=== PATIENT | female | born 1950 | race Caucasian/White ===

== ENCOUNTER 2019-02-21 07:47 | Emergency (ER) | payer MEDICARE, OTHER ==
[2019-02-21 08:06] VITALS: BP 149/68
--- NOTE | 2019-02-21 08:32 | UC ---
Skin Complaint HPI - HPI Summary HPI Summary: patient was working in the garden a few days ago. ended up with a itchy red bumpy rash on her left arm and ankle has been appliying cortisone cream with little relief - History of Current Complaint Chief Complaint: UCSkin Time Seen by Provider: 02/21/19 08:15 Stated Complaint: RASH Hx Obtained From: Patient Hx Last Menstrual Period: 2008 ?: No Onset/Duration: Sudden Onset, Lasting Days Skin Exposure Onset/Duration: Days Ago Onset Severity: Mild Current Severity: None Pain Intensity: 0 Location: Discrete Character: Pruritus, Redness, Raised Aggravating Factor(s): Humidity, Touch Alleviating Factor(s): Nothing Related History: Possible Reaction to: Environmental Exposure - Allergy/Home Medications Allergies/Adverse Reactions: Allergies Allergy/AdvReac Type Severity Reaction Status Date / Time benzoin Allergy Unknown Verified 02/21/19 08:07 Reaction Details Home Medications: Home Medications Amlodipine Besylate [Amlodipine 2.5 mg tab] 5 mg PO DAILY 02/21/19 [History Confirmed 02/21/19] Candesartan/Hydrochlorothiazid [Candesartan Cilexetil/Hyd 32-25 mg] 1 tab PO DAILY 02/21/19 [History Confirmed 02/21/19] PMH/Surg Hx/FS Hx/Imm Hx Previously Healthy: Yes - Surgical History Surgical History: Yes Surgery Procedure, Year, and Place: hernia x2. VEINS LEFT LEG, STRIPING AND LIGATION - Family History Known Family History: Positive: None, Cardiac Disease, Diabetes - Social History Alcohol Use: None Substance Use Type: None Smoking Status (MU): Never Smoked Tobacco - Immunization History Most Recent Influenza Vaccination: July 2015 Review of Systems All Other Systems Reviewed And Are Negative: Yes Skin: Positive: Rash Is Patient Immunocompromised?: No Physical Exam Triage Information Reviewed: Yes Appearance: Well-Appearing, Well-Nourished, Pain Distress Vital Signs: Initial Vital Signs Temp 99.0 F 02/21/19 07:57 Pulse 74 02/21/19 07:57 Resp 18 02/21/19 07:57 BP 149/68 02/21/19 07:57 Pulse Ox 96 02/21/19 07:57 Vital Signs Reviewed: Yes Eye Exam: Normal ENT Exam: Normal Dental Exam: Normal Neck exam: Normal Respiratory Exam: Normal Cardiovascular Exam: Normal Abdominal Exam: Normal Bowel Sounds: Positive: Present Musculoskeletal Exam: Normal Neurological Exam: Normal Psychological Exam: Normal Skin: Positive: Rashes - large area of red fluid filled small vessicles on left forarm and left ankle Course/Dx - Course Course Of Treatment: hx obtained, exam performed ,meds reviewed, and treated for contact dermatitis - Differential Diagnoses - Skin Complaint Differential Diagnoses: Allergic Reaction, Cellulitis, Contact Dermatitis, Urticaria - Diagnoses Provider Diagnosis: Contact dermatitis and eczema due to plant Discharge - Sign-Out/Discharge Documenting (check all that apply): Patient Departure All imaging exams completed and their final reports reviewed: No Studies - Discharge Plan Condition: Stable Disposition: HOME Prescriptions: Clobetasol 0.05% OINT* 1 applic TOPICAL BID #1 tube predniSONE [Prednisone 20 MG TAB] 20 mg PO DAILY #9 tablet Patient Education Materials: Contact Dermatitis (ED) Referrals: Guera Arreguin MD [Primary Care Provider] - Additional Instructions: 1. use the cream as prescribed. 2. take the prednisone as prescribed. 3. FOllow up if not improving - Billing Disposition and Condition Condition: STABLE Disposition: Home
== END 2019-02-21 08:33 | disposition home or self-care (01) ==
LOC: UCCORT 07:47
DX: L24.7 Irritant contact dermatitis due to plants, except food (principal); Z88.8 Allergy status to other drugs, medicaments and biological substances
CPT/HCPCS: 99202; G0463